=== PATIENT | male | born 1970 | race Caucasian/White ===

== ENCOUNTER 2019-01-29 10:14 | Emergency (ER) | payer MEDICAID ==
[~2019-01-29] VITALS: Ht 190.5 cm; Wt 99.7 kg
[2019-01-29 10:19] VITALS: BP 127/82
[2019-01-29] MEDS ORDERED: METH4TAB3 PO (10:40)
[2019-01-29] MEDS ORDERED: methylPREDNISolone sod succ 125mg/2ml vial IM ONE (10:40)
== END 2019-01-29 11:10 | disposition home or self-care (01) ==
LOC: ER 10:15
DX: L23.7 Allergic contact dermatitis due to plants, except food (principal); Z79.899 Other long term (current) drug therapy
CPT/HCPCS: 96372; 99283; J2930